=== PATIENT | male | born 1955 | race Hispanic/Latino ===

== ENCOUNTER → 2018-09-10 | Day surgery (SDC) | payer OTHER ==
[~2018-09-10] MED LIST: AMOXICILLIN250 MG PO; CLARITHROMYCIN500 MG PO; DOCUSATE SODIU100 MG PO; FENTANYL CITRATE/PF 100MCG/2 ML INJ ONE; MIDAZOLAM HCL 2 MG/2 ML VIAL ONE; OMEPRAZOLE40 MG PO; PROPOFOL IV EMULSION 10 MG/ML 50 ML VIAL ONE
--- OUTSIDE RECORDS SUMMARY | 2018-09-10 08:38 | XMS REPORT ---
[facility] Address Unknown Phone Unavailable Care Team Providers Care Cessation Systems Outreach Specialist Name Role Phone Unavailable Unavailable Problems This patient has no known problems. Allergies, Adverse Reactions, Alerts This patient has no known allergies or adverse reactions. Medications This patient has no known medications. Encounters Start Date/Time End Date/Time Encounter Type Admission Type Attending [facility] [place] Facility Care Department Encounter ID 2017-09-28 16:40:22 Inpatient [facility] [id number] 2017-09-28 12:43:39 Inpatient [facility] [id number] 2017-09-28 00:00:00 Inpatient [facility] [id number] 2017-09-27 00:00:00 Inpatient [facility] [id number] 2018-09-12 00:00:00 2018-09-12 00:00:00 Outpatient [facility] [id number] 2018-09-04 08:25:39 2018-09-04 08:25:39 Outpatient [facility] [id number] 2018-07-05 10:38:46 2018-07-05 10:38:46 Outpatient [facility] [id number] 2018-06-20 09:02:15 2018-06-20 09:02:15 Outpatient [facility] [id number] 2018-06-20 08:57:17 2018-06-20 08:57:17 Outpatient [facility] [id number] 2018-06-14 10:33:18 2018-06-14 10:33:18 Outpatient [facility] [id number] 2018-05-28 10:38:43 2018-05-28 10:38:43 Outpatient [facility] [id number] 2018-05-14 10:52:29 2018-05-14 10:52:29 Outpatient [facility] [id number] 2018-04-23 10:38:08 2018-04-23 10:38:08 Outpatient [facility] [id number] 2018-04-18 10:26:59 2018-04-18 10:26:59 Outpatient [facility] [id number] 2018-04-18 10:25:20 2018-04-18 10:25:20 Outpatient [facility] [id number] 2018-04-09 10:51:03 2018-04-09 10:51:03 Outpatient [facility] [id number] 2018-03-21 08:50:32 2018-03-21 08:50:32 Outpatient [facility] [id number] 2018-03-21 08:43:50 2018-03-21 08:43:50 Outpatient [facility] [id number] 2018-03-06 10:40:16 2018-03-06 10:40:16 Outpatient [facility] [id number] 2018-02-28 12:46:56 2018-02-28 12:46:56 Outpatient [facility] [id number] 2018-02-21 10:04:27 2018-02-21 10:04:27 Outpatient [facility] [id number] 2018-02-15 08:22:17 2018-02-15 08:22:17 Outpatient [facility] [id number] 2018-01-31 00:00:00 2018-01-31 00:00:00 Outpatient [facility] [id number] 2018-01-17 07:37:15 2018-01-17 07:37:15 Outpatient [facility] [id number] 2018-01-17 07:33:54 2018-01-17 07:33:54 Outpatient [facility] [id number] 2018-01-17 00:00:00 2018-01-17 00:00:00 Outpatient [facility] [id number] 2018-01-04 10:16:02 2018-01-04 10:16:02 Outpatient [facility] [id number] 2017-12-19 09:51:57 2017-12-19 09:51:57 Outpatient [facility] [id number] 2017-12-06 08:41:12 2017-12-06 08:41:12 Outpatient [facility] [id number] 2017-12-06 08:37:53 2017-12-06 08:37:53 Outpatient [facility] [id number] 2017-11-27 09:42:18 2017-11-27 09:42:18 Outpatient [facility] [id number] 2017-11-14 10:19:13 2017-11-14 10:19:13 Outpatient [facility] [id number] 2017-11-14 09:19:18 2017-11-14 09:19:18 Outpatient [facility] [id number] 2017-11-14 09:06:24 2017-11-14 09:06:24 Outpatient [facility] [id number] 2017-10-31 15:26:05 2017-10-31 15:26:05 Outpatient [facility] [id number] 2017-10-31 10:27:40 2017-10-31 10:27:40 Outpatient [facility] [id number] 2017-10-31 10:16:24 2017-10-31 10:16:24 Outpatient [facility] [id number] 2017-10-31 00:00:00 2017-10-31 00:00:00 Outpatient [facility] [id number] 2017-10-30 09:11:53 2017-10-30 09:11:53 Outpatient [facility] [id number] 2017-10-17 12:32:24 2017-10-17 12:32:24 Outpatient [facility] [id number] 2017-10-17 10:42:41 2017-10-17 10:42:41 Outpatient [facility] [id number] 2017-10-15 10:05:34 2017-10-15 10:05:34 Outpatient [facility] [id number] 2017-09-28 16:07:28 2017-09-28 00:00:00 Inpatient [facility] [id number] 2017-09-26 19:45:27 2017-09-26 19:45:27 Inpatient [facility] [id number] 2017-09-26 14:20:40 2017-09-26 14:20:40 Outpatient [facility] [id number] 2017-09-26 14:05:31 2017-09-26 14:05:31 Outpatient [facility] [id number] 2017-09-13 18:03:20 2017-09-13 18:03:20 Emergency [facility] [id number] 2017-09-13 17:25:17 2017-09-13 17:25:17 Emergency [facility] [id number] 2017-09-13 12:17:15 2017-09-13 12:17:15 Emergency [facility] [id number] 2017-09-13 03:01:01 2017-09-13 03:01:01 Emergency [facility] [id number] 2017-09-13 00:00:00 2017-09-13 00:00:00 Emergency [facility] [id number] 2017-09-13 00:00:00 2017-09-13 00:00:00 Emergency [facility] [id number] 2017-09-12 23:19:16 2017-09-12 23:19:16 Emergency [facility] [id number] 2017-09-12 21:33:27 2017-09-12 21:33:27 Emergency [facility] [id number] 2017-09-12 20:47:43 2017-09-12 20:47:43 Emergency [facility] [id number]
[2018-09-10 15:15] VITALS: BP 120/99
== END | disposition home or self-care (01) ==
LOC: OR 08:35
PROVIDERS: ATTEND Internal Medicine Gastroenterology
DX: Z12.11 Encounter for screening for malignant neoplasm of colon (principal); D12.0 Benign neoplasm of cecum; D12.2 Benign neoplasm of ascending colon; D12.3 Benign neoplasm of transverse colon; D12.5 Benign neoplasm of sigmoid colon; K52.9 Noninfective gastroenteritis and colitis, unspecified; K57.30 Diverticulosis of large intestine without perforation or abscess without bleeding; K64.8 Other hemorrhoids; K59.00 Constipation, unspecified; K21.9 Gastro-esophageal reflux disease without esophagitis; R03.0 Elevated blood-pressure reading, without diagnosis of hypertension; E66.01 Morbid (severe) obesity due to excess calories; Z01.810 Encounter for preprocedural cardiovascular examination; Z68.41 Body mass index [BMI] 40.0-44.9, adult
CPT/HCPCS: 45384; 45385; 93005; J2250

== ENCOUNTER 2024-03-26 13:27 | Outpatient (RCR) | payer MEDICARE ==
[~2024-03-26 13:27] MED LIST changes: -FENTANYL CITRATE/PF 100MCG/2 ML INJ ONE; -MIDAZOLAM HCL 2 MG/2 ML VIAL ONE; -PROPOFOL IV EMULSION 10 MG/ML 50 ML VIAL ONE
== END 2024-04-23 ==
LOC: PT 13:27
PROVIDERS: ATTEND Internal Medicine
DX: R53.1 Weakness (principal)

== ENCOUNTER 2024-06-18 08:05 | Outpatient (RCR) | payer MEDICARE | END 2024-06-23 | LOC: PT 08:05 | PROVIDERS: ATTEND Internal Medicine | DX: I69.322 Dysarthria following cerebral infarction (principal); R13.13 Dysphagia, pharyngeal phase ==